=== PATIENT | female | born 1945 | race Caucasian/White ===

== ENCOUNTER 2016-10-14 15:05 | Emergency (ER) | payer MEDICARE, BC ==
[2016-10-14 16:34] VITALS: BP 123/67
[2016-10-14] MEDS ORDERED: Ibuprofen TAB* 600 MG PO ONE (17:04)
--- NOTE | 2016-10-14 17:15 | UC ---
Upper Extremity HPI - HPI Summary HPI Summary: Tripped by dog while on a walk last night, DELMIS L wrist. Now wrist is bruised and swollen. - History of Current Complaint Chief Complaint: UCUpperExtremity Stated Complaint: WRIST INJURY Time Seen by Provider: 10/14/16 16:51 Hx Obtained From: Patient Hx Last Menstrual Period: n/a ?: No Onset/Duration: Sudden Onset Severity Initially: Moderate Severity Currently: Moderate Location Of Pain: Is Discrete @ Character: Dull, Aching, Stiffness Aggravating Factor(s): Movement, Lifting, Flexion, Extension, Internal/External Rotation Alleviating Factor(s): Elevation, Ice Associated Signs And Symptoms: Positive: Swelling, Bruising Related History: Dominant Hand Right - Allergies/Home Medications Allergies/Adverse Reactions: Allergies Allergy/AdvReac Type Severity Reaction Status Date / Time Cefuroxime [From Ceftin] Allergy Hives Verified 10/14/16 16:26 PMH/Surg Hx/FS Hx/Imm Hx Endocrine History Of: Denies: Diabetes Cardiovascular History Of: Denies: Hypertension, Pacemaker/ICD GI/ History Of: Denies: Renal Disease Cancer History Of: Denies: Breast Cancer - Surgical History Surgical History: Yes Surgery Procedure, Year, and Place: AGE 4 - LUMP REMOVED -NECK AREA-BENIGN -. dental bone graft in 99. Bladder prolaps; pelvic reconstruction 08/16 - Family History Known Family History: Positive: None - Social History Occupation: Retired Lives: With Family Alcohol Use: Weekly Substance Use Type: None Smoking Status (MU): Former Smoker Have You Smoked in the Last Year: No When Did the Patient Quit Smoking/Using Tobacco: 45 years ago - Immunization History Most Recent Influenza Vaccination: fall 2015 Hx Tetanus, Diphtheria Vaccination: Yes Vaccination Up to Date: Yes Review of Systems Constitutional: Negative Skin: Bruising Eyes: Negative ENT: Negative Respiratory: Negative Cardiovascular: Negative Gastrointestinal: Negative Genitourinary: Negative Motor: Negative Neurovascular: Negative Musculoskeletal: Arthralgia, Decreased ROM Neurological: Negative Psychological: Negative All Other Systems Reviewed And Are Negative: Yes Physical Exam Triage Information Reviewed: Yes Appearance: Well-Appearing, Well-Nourished Vital Signs: Initial Vital Signs Temp 98.5 F 10/14/16 16:27 Pulse 72 10/14/16 16:27 Resp 14 10/14/16 16:27 BP 123/67 10/14/16 16:27 Pulse Ox 100 10/14/16 16:27 Vital Signs Reviewed: Yes Eye Exam: Normal Eyes: Positive: Conjunctiva Clear ENT Exam: Normal ENT: Positive: Normal ENT inspection, Hearing grossly normal, Pharynx normal, TMs normal Dental Exam: Normal Neck exam: Normal Neck: Positive: Supple, Nontender Respiratory Exam: Normal Respiratory: Positive: Chest non-tender, Lungs clear, Normal breath sounds, No respiratory distress, No accessory muscle use Cardiovascular Exam: Normal Cardiovascular: Positive: RRR, No Murmur Musculoskeletal Exam: Other - L distal radius tenderness Musculoskeletal: Positive: Strength Limited @ - L sinker puller, ROM Limited @ - L wrist Neurological Exam: Normal Neurological: Positive: Alert Psychological Exam: Normal Skin Exam: Normal Upper Extremity Course/Dx - Differential Dx/Diagnosis Provider Diagnoses: L distal radius fracture closed, nondisplaced. Elevated blood pressure due to discomfort Discharge - Discharge Plan Condition: Stable Disposition: HOME Patient Education Materials: Wrist Fracture in Adults (ED) Referrals: Jasiel Nathan MD [Primary Care Provider] - Bert Garcia MD [Medical Doctor] - 1 Week Additional Instructions: Keep the splint on all the time until you are seen by the orthopedist.
--- NOTE | 2016-10-14 17:28 | RAD ---
INDICATION: Left wrist injury COMPARISON: None TECHNIQUE: AP, lateral, and oblique views were obtained. FINDINGS: There is osteopenia with a mildly impacted extra-articular distal radial fracture. There are ossific density projecting over the dorsum of the wrist which could be related to a triquetral avulsion injuries. No other focal bony findings are seen. The carpals articulate normally. There is mild diffuse soft tissue swelling. IMPRESSION: MILDLY IMPACTED DISTAL RADIAL FRACTURE. SUSPECT TRIQUETRAL AVULSION INJURIES. THIS IS AGE INDETERMINATE.
== END 2016-10-14 17:42 | disposition home or self-care (01) ==
LOC: UCEAST 15:05
DX: S52.502A Unspecified fracture of the lower end of left radius, initial encounter for closed fracture (principal); W01.0XXA Fall on same level from slipping, tripping and stumbling without subsequent striking against object, initial encounter; Y93.9 Activity, unspecified; Y99.9 Unspecified external cause status; R03.0 Elevated blood-pressure reading, without diagnosis of hypertension
CPT/HCPCS: 99212; G0463

== ENCOUNTER 2018-08-12 13:06 | Emergency (ER) | payer MEDICARE, BC ==
[2018-08-12 15:29] VITALS: BP 120/75
--- NOTE | 2018-08-12 15:53 | UC ---
Throat Pain/Nasal Jean Marie HPI - HPI Summary HPI Summary: Pt c/o cough, nasal congestion, ST, X 2 days. Pt is concerned about strep throat. - History of Current Complaint Chief Complaint: UCRespiratory Stated Complaint: ST Time Seen by Provider: 08/12/18 15:34 Hx Obtained From: Patient Hx Last Menstrual Period: n/a ?: No Onset/Duration: Sudden Onset, Lasting Days, Still Present Severity: Mild Pain Intensity: 4 Cough: Nonproductive Associated Signs & Symptoms: Positive: Dysphagia - Epiglottits Risk Factors Epiglottis Risk Factors: Negative - Allergies/Home Medications Allergies/Adverse Reactions: Allergies Allergy/AdvReac Type Severity Reaction Status Date / Time cefuroxime [From Ceftin] Allergy Hives Verified 08/12/18 15:18 Home Medications: Home Medications Robitussin With Acetaminophen 1 dose PO BEDTIME PRN 08/12/18 [History] [place] Inj 1 dose SUBCUT DAILY 08/12/18 [History] PMH/Surg Hx/FS Hx/Imm Hx Previously Healthy: Yes Cardiovascular History: Cardiac Disease - Surgical History Surgical History: Yes Surgery Procedure, Year, and Place: AGE 4 - LUMP REMOVED -NECK AREA-BENIGN -. dental bone graft in 99. Bladder prolaps; pelvic reconstruction 08/16 - Family History Known Family History: Positive: Cardiac Disease - Social History Occupation: Retired Lives: With Family Alcohol Use: Weekly Substance Use Type: None Smoking Status (MU): Former Smoker Have You Smoked in the Last Year: No When Did the Patient Quit Smoking/Using Tobacco: 45 years ago - Immunization History Most Recent Influenza Vaccination: fall 2015 Hx Tetanus, Diphtheria Vaccination: Yes Vaccination Up to Date: Yes Review of Systems All Other Systems Reviewed And Are Negative: Yes Constitutional: Positive: Negative Skin: Positive: Negative Eyes: Positive: Negative ENT: Positive: Sore Throat, Nasal Discharge, Sinus Congestion Respiratory: Positive: Cough Cardiovascular: Positive: Negative Gastrointestinal: Positive: Negative Genitourinary: Positive: Negative Motor: Positive: Negative Neurovascular: Positive: Negative Musculoskeletal: Positive: Myalgia Neurological: Positive: Negative Psychological: Positive: Negative Is Patient Immunocompromised?: No Physical Exam Triage Information Reviewed: Yes Appearance: Well-Appearing Vital Signs: Initial Vital Signs Temp 98.7 F 08/12/18 15:22 Pulse 77 08/12/18 15:22 Resp 18 08/12/18 15:22 BP 120/75 08/12/18 15:22 Pulse Ox 100 08/12/18 15:22 Vital Signs Reviewed: Yes Eye Exam: Normal ENT: Positive: Nasal congestion, Other - ceruemen bilateral ears. Dental Exam: Normal Neck exam: Normal Respiratory Exam: Normal Cardiovascular Exam: Normal Musculoskeletal Exam: Normal Neurological Exam: Normal Psychological Exam: Normal Skin Exam: Normal Throat Pain/Nasal Course/Dx - Course Assessment/Plan: I removed the ceruemn in bilateral ears. Pt tolerated procedure well. - Differential Dx/Diagnosis Differential Diagnosis/HQI/PQRI: URI Provider Diagnosis: Viral syndrome, Excessive cerumen in both ear canals Discharge - Sign-Out/Discharge Documenting (check all that apply): Patient Departure All imaging exams completed and their final reports reviewed: No Studies - Discharge Plan Condition: Stable Disposition: HOME Patient Education Materials: Cerumen Impaction (ED), Viral Syndrome (ED) Referrals: Sarah Martinez MD [Primary Care Provider] - If Needed - Billing Disposition and Condition Condition: STABLE Disposition: Home
== END 2018-08-12 16:04 | disposition home or self-care (01) ==
LOC: UCCORT 13:06
DX: B34.9 Viral infection, unspecified (principal); Z87.891 Personal history of nicotine dependence; Z88.1 Allergy status to other antibiotic agents
CPT/HCPCS: 87651; 99211; G0463

== ENCOUNTER 2019-08-02 10:28 | Emergency (ER) | payer MEDICARE, BC ==
[2019-08-02 13:52] VITALS: BP 126/74
--- NOTE | 2019-08-02 14:13 | UC ---
General HPI - HPI Summary HPI Summary: 73-year-old female comes in with a chief complaint of recurrent left-sided nosebleeds. First when she had was July 12, 2019. Reports she's had 6 since. Last 1 was couple days ago. Patient stops it by pinching her nose. Patient is not on a blood thinner she does not have a history of hypertension. She does use a woodstove for heating. She has started to use a humidifier. No specific trauma. She reports that her sister of a brain tumor that the first symptom was bloody nose. She does get a headache when she has the nosebleed but she does not have a headache otherwise. Rhinorrhea overall has been clear. She did have an upper respiratory tract infection that she got over in early June 2019. No prior history of nosebleeds. - History of Current Complaint Chief Complaint: UCGeneralIllness Stated Complaint: PERSISTENT NOSE BLEEDS Time Seen by Provider: 08/02/19 13:41 Hx Last Menstrual Period: n/a Pain Intensity: 4 - Allergy/Home Medications Allergies/Adverse Reactions: Allergies Allergy/AdvReac Type Severity Reaction Status Date / Time cefuroxime [From Ceftin] Allergy Hives Verified 08/02/19 13:45 Home Medications: Home Medications Calcium Carbonate/Vitamin D3 [Calcium/Vitamin D] 2 cap PO DAILY 08/02/19 [ History Confirmed 08/02/19] Cholecalciferol TAB* [Vitamin D TAB*] 2,000 units PO DAILY 08/02/19 [History Confirmed 08/02/19] PMH/Surg Hx/FS Hx/Imm Hx Previously Healthy: Yes - Surgical History Surgical History: Yes Surgery Procedure, Year, and Place: AGE 4 - LUMP REMOVED -NECK AREA-BENIGN -. dental bone graft in 99. Bladder prolaps; pelvic reconstruction 08/16 - Family History Known Family History: Positive: None, Cardiac Disease - Social History Alcohol Use: Occasionally Substance Use Type: None Smoking Status (MU): Former Smoker Have You Smoked in the Last Year: No When Did the Patient Quit Smoking/Using Tobacco: 45 years ago - Immunization History Most Recent Influenza Vaccination: fall 2015 Hx Tetanus, Diphtheria Vaccination: Yes Vaccination Up to Date: Yes Review of Systems All Other Systems Reviewed And Are Negative: Yes Constitutional: Positive: Negative Skin: Positive: Negative Eyes: Positive: Negative ENT: Positive: Epistaxis Respiratory: Positive: Negative Cardiovascular: Positive: Negative Gastrointestinal: Positive: Negative Motor: Positive: Negative Neurovascular: Positive: Negative Musculoskeletal: Positive: Negative Neurological: Positive: Negative Psychological: Positive: Negative Is Patient Immunocompromised?: No Physical Exam Triage Information Reviewed: Yes Appearance: Well-Appearing, No Pain Distress, Well-Nourished Vital Signs: Initial Vital Signs Temp 99.1 F 08/02/19 13:47 Pulse 71 08/02/19 13:47 Resp 15 08/02/19 13:47 BP 126/74 08/02/19 13:47 Pulse Ox 100 08/02/19 13:47 Vital Signs Reviewed: Yes Eye Exam: Normal Eyes: Positive: Conjunctiva Clear ENT: Positive: Pharynx normal, Other - No blood seen in the nares no obvious wound. Neck: Positive: Supple Respiratory: Positive: No respiratory distress Musculoskeletal: Positive: Strength Intact, ROM Intact Neurological: Positive: Alert Psychological: Positive: Age Appropriate Behavior Skin Exam: Normal Course/Dx - Course Course Of Treatment: We discussed using saline nasal spray and some Vaseline. Also will try to humidify the air in her home more. We discussed starting an antibiotic for potential sinus infection which the patient declined at this time. Plan is to follow-up with ENT. We discussed best ways to stop an active nosebleed and also indications to go to the emergency department if the nosebleeds are not improving. - Diagnoses Provider Diagnosis: Epistaxis, recurrent Discharge ED - Sign-Out/Discharge Documenting (check all that apply): Patient Departure All imaging exams completed and their final reports reviewed: No Studies - Discharge Plan Condition: Stable Disposition: HOME Patient Education Materials: Nosebleed (ED) Referrals: Sarah Martinez MD [Primary Care Provider] - Additional Instructions: FOLLOW UP WITH ENT. GET REEVALUATED SOONER IF NOT IMPROVING OR WORSE OR ANY QUESTIONS OR CONCERNS. - Billing Disposition and Condition Condition: STABLE Disposition: Home
== END 2019-08-02 14:25 | disposition home or self-care (01) ==
LOC: UCCORT 10:28
DX: R04.0 Epistaxis (principal); Z87.891 Personal history of nicotine dependence; Z88.8 Allergy status to other drugs, medicaments and biological substances
CPT/HCPCS: 99211; G0463